=== PATIENT | male | born 1965 | race Caucasian/White ===

== ENCOUNTER 2018-12-10 07:06 | Emergency (ER) | payer OTHER ==
[2018-12-10 07:25] VITALS: BP 158/78
--- NOTE | 2018-12-10 07:28 | UC ---
Skin Complaint HPI - HPI Summary HPI Summary: PATIENT WITH MANY YEARS OF CHRONIC LOWER EXTREMITY SWELLING AND UNCONTROLLED DIABETES COMES IN WITH A 5 DAY HISTORY OF RIGHT LOWER EXTREMITY SKIN ULCER. STARTED INITIALLY A TENSE LUMP WHICH THEN BURST AND DRAINED WHAT SOUNDS LIKE SEROSANGUINEOUS FLUID. PATIENT HAS BEEN CLEANING IT AND BANDAGING IT DAILY. DENIES FEVER. NO PREVIOUS HISTORY OF DIABETIC ULCERS. NO KNOWN HISTORY OF MRSA. - History of Current Complaint Chief Complaint: UCLowerExtremity Time Seen by Provider: 12/10/18 07:27 Stated Complaint: OPEN SORE LOWER LFT LEG Hx Obtained From: Patient Onset/Duration: Gradual Onset, Lasting Days, Still Present Timing: Constant Onset Severity: Moderate Current Severity: Moderate Pain Intensity: 0 Pain Scale Used: 0-10 Numeric Character: Pruritus Aggravating Factor(s): Nothing Alleviating Factor(s): Nothing Associated Signs & Symptoms: Positive: Drainage. Negative: Red Streaks - Allergy/Home Medications Allergies/Adverse Reactions: Allergies Allergy/AdvReac Type Severity Reaction Status Date / Time oxycodone Allergy Shakes Verified 12/10/18 07:33 Penicillins Allergy Rash Verified 12/10/18 07:33 tramadol Allergy Shakes Verified 12/10/18 07:33 Home Medications: Home Medications Aspirin 81 mg CHEW TAB* 81 mg PO DAILY 12/10/18 [History Confirmed 12/10/18] Empaglifozin (NF) [Jardiance] 25 mg PO DAILY 12/10/18 [History Confirmed ] PMH/Surg Hx/FS Hx/Imm Hx Endocrine History: Diabetes Cardiovascular History: Hypertension - Surgical History Surgical History: Yes Surgery Procedure, Year, and Place: 1981 Appendectomy. 1994 Blood Blister removed; right leg - Family History Known Family History: Positive: Hypertension - Social History Alcohol Use: Rare Substance Use Type: None Smoking Status (MU): Never Smoked Tobacco Review of Systems All Other Systems Reviewed And Are Negative: Yes Constitutional: Positive: Negative Skin: Positive: Other - DRAINING ULCER Respiratory: Positive: Negative Cardiovascular: Positive: Negative Gastrointestinal: Positive: Negative Physical Exam Triage Information Reviewed: Yes Appearance: Well-Appearing, No Pain Distress, Well-Nourished Vital Signs: Initial Vital Signs Temp 97.0 F 12/10/18 07:20 Pulse 103 12/10/18 07:20 Resp 18 12/10/18 07:20 BP 158/78 12/10/18 07:20 Pulse Ox 99 12/10/18 07:20 Vital Signs Reviewed: Yes Eyes: Positive: Conjunctiva Clear ENT: Positive: Hearing grossly normal Neck: Positive: Supple Respiratory: Positive: No respiratory distress, No accessory muscle use Cardiovascular: Positive: Pulses Normal Abdomen Description: Positive: Soft Musculoskeletal: Positive: ROM Intact, Edema @ - TENSE BILATERAL LOWER EXTREMITY EDEMA Neurological: Positive: Alert Psychological: Positive: Age Appropriate Behavior Skin: Positive: Other - BILATERAL LOWER EXTREMITY SKIN THICKENING AND HYPERPIGMENTATION. LATERAL RIGHT ANKLE WITH 2CM X 1.5CM ULCERATION WITH CLEAR DRAINAGE. MORE SUPERFICIAL ULCERATIONS ADJACENT X 2 ALSO DRAINING CLEAR FLUID Course/Dx - Course Course Of Treatment: WOUND CLEANED AND DRESSED. PT ADVISED TO CONTACT WOUND CARE AND ALSO TO INQUIRE ABOUT LEG EDEMA TREATMENTS. - Diagnoses Provider Diagnosis: Stasis ulcer of right ankle Discharge - Sign-Out/Discharge Documenting (check all that apply): Patient Departure All imaging exams completed and their final reports reviewed: No Studies - Discharge Plan Condition: Stable Disposition: HOME Prescriptions: Cephalexin CAP* [Keflex 500 CAP*] 500 mg PO QID #28 cap Patient Education Materials: Diabetes and Your Skin (ED) Referrals: Carl Coon MD [Primary Care Provider] - If Needed Additional Instructions: GIVEN YOUR LONG-STANDING LOWER EXTREMITY SWELLING AND UNCONTROLLED DIABETES YOU ARE AT INCREASED RISK FOR DEVELOPING CHRONIC WOUNDS AND SECONDARY BACTERIAL INFECTION. CALL WOUND CARE TODAY TO SCHEDULE A FOLLOW-UP APPOINTMENT FOR LATER THIS WEEK OR NEXT WEEK. YOU SHOULD DISCUSS YOUR OPTIONS FOR RECEIVING TREATMENTS TO HELP WITH YOUR CHRONIC LOWER EXTREMITY SWELLING. RELIEVING THIS WILL HELP REDUCE YOUR RISK OF CHRONIC/RECURRENT WOUNDS. THE NUMBER FOR THE [facility] [place] [facility] IS PROVIDED BELOW. YOU MAY ALSO CALL [facility] TO INQUIRE ABOUT THEIR WOUND CARE SERVICE IF THAT IS MORE CONVENIENT GIVEN WHERE YOU LIVE. TAKE THE ANTIBIOTICS FOR THE FULL COURSE TO HELP PREVENT DEVELOPING INFECTION. GO TO THE CLOSEST ER WITHOUT FAIL IF YOU DEVELOP FEVER, WORSENING SWELLING, PAIN , PURULENT DRAINAGE OR ANY OTHER CONCERNING SYMPTOMS. [facility] [place] [place] [facility] [phone] - Billing Disposition and Condition Condition: STABLE Disposition: Home
== END 2018-12-10 08:04 | disposition home or self-care (01) ==
LOC: UCEAST 07:06
DX: I87.2 Venous insufficiency (chronic) (peripheral) (principal); E11.9 Type 2 diabetes mellitus without complications; I10 Essential (primary) hypertension; Z79.84 Long term (current) use of oral hypoglycemic drugs; Z79.82 Long term (current) use of aspirin; Z88.5 Allergy status to narcotic agent; Z88.0 Allergy status to penicillin
CPT/HCPCS: 99212; G0463

== ENCOUNTER 2019-02-09 09:38 | Emergency (ER) | payer OTHER ==
--- NOTE | 2019-02-09 10:30 | ED ---
ED Suture/Wound Check - HPI Summary HPI Summary: The patient is a 53 y/o M presenting to [facility] with a chief complaint of weeping wounds in the BLE near the calves ankles starting this morning. He reports that the wounds are from hx of DM and viral infections, and he has been going to the wound clinic, but was unable to call them today because of the holiday. He was told measures for caretaking of the wounds after a zinc oxide wrap was placed last week, but he was not sure what to do for weeping of the wounds so he was concerned. He is not currently in any myalgia, but he rates the current pain at 3/10 in severity. He denies fevers. He is currently on Bactrim. - History Of Current Complaint Chief Complaint: EDExtremityLower Stated Complaint: WOUND BLED THROUGH DRESSINGS PER PT Time Seen by Provider: 02/09/19 10:03 Hx Obtained From: Patient Onset/Duration: Gradual Onset, Lasting Hours, Still Present Severity: Mild Pain Intensity: 3 Pain Scale Used: 0-10 Numeric - Allergies/Home Medications Allergies/Adverse Reactions: Allergies Allergy/AdvReac Type Severity Reaction Status Date / Time oxycodone Allergy Shakes Verified 02/09/19 09:45 Penicillins Allergy Rash Verified 02/09/19 09:45 tramadol Allergy Shakes Verified 02/09/19 09:45 Home Medications: Home Medications Cholecalciferol TAB* [Vitamin D TAB*] 1,000 unit PO DAILY 02/09/19 [History Confirmed 02/09/19] Multivitamin [Multivitamins] 1 cap PO DAILY 02/09/19 [History Confirmed 02/09/19 ] Vitamin K2 40 mcg PO DAILY 02/09/19 [History Confirmed 02/09/19] PMH/Surg Hx/FS Hx/Imm Hx Endocrine/Hematology History: Reports: Hx Diabetes Denies: Hx Thyroid Disease Cardiovascular History: Reports: Hx Hypertension Respiratory History: Denies: Hx Asthma, Hx Chronic Obstructive Pulmonary Disease (COPD) GI History: Denies: Hx Ulcer - Surgical History Surgery Procedure, Year, and Place: 1981 Appendectomy. 1994 Blood Blister removed; right leg Infectious Disease History: No Infectious Disease History: Denies: Hx Hepatitis, Hx Human Immunodeficiency Virus (HIV), Traveled Outside the [place] in Last 30 Days - Family History Known Family History: Positive: Hypertension - Social History Alcohol Use: Rare Hx Substance Use: No Substance Use Type: Reports: None Hx Tobacco Use: No Smoking Status (MU): Never Smoked Tobacco Do You Chew or Dip Tobacco: No Have You Chewed or Dipped Tobacco in the LAST YEAR: No Have You Smoked in the Last Year: No Review of Systems Negative: Fever Negative: Myalgia Positive: Other - wounds on lower portion of bilateral extremities at calves and ankles with active weeping All Other Systems Reviewed And Are Negative: Yes Physical Exam - Summary Physical Exam Summary: VITAL SIGNS: Reviewed. GENERAL: Patient is a well-developed and nourished male who is lying comfortable in the stretcher. Patient is not in any acute respiratory distress. HEAD AND FACE: No signs of trauma. No ecchymosis, hematomas or skull depressions. No sinus tenderness. EYES: PERRLA, EOMI x 2, No injected conjunctiva, no nystagmus. EARS: Hearing grossly intact. Ear canals and tympanic membranes are within normal limits. MOUTH: Oropharynx within normal limits. NECK: Supple, trachea is midline, no adenopathy, no JVD, no carotid bruit, no c- spine tenderness, neck with full ROM. CHEST: Symmetric, no tenderness at palpation LUNGS: Clear to auscultation bilaterally. No wheezing or crackles. CVS: Regular rate and rhythm, S1 and S2 present, no murmurs or gallops appreciated. ABDOMEN: Soft, non-tender. No signs of distention. No rebound no guarding, and no masses palpated. Bowel sounds are normal. EXTREMITIES: FROM in all major joints, no edema, no cyanosis or clubbing. NEURO: Alert and oriented x 3. No acute neurological deficits. Speech is normal and follows commands. SKIN: Dry and warm. Three wounds in the left lateral aspect of the left calf, two wounds in the lateral aspect of the right calf, mucopurulent discharge. Triage Information Reviewed: Yes Vital Signs On Initial Exam: Initial Vitals Temp Pulse Resp BP Pulse Ox 97.0 F 111 19 150/117 97 02/09/19 09:43 02/09/19 09:43 02/09/19 09:43 02/09/19 09:43 02/09/19 09:43 Vital Signs Reviewed: Yes Diagnostics - Vital Signs Vital Signs Temp Pulse Resp BP Pulse Ox 02/09/19 09:43 97.0 F 111 19 150/117 97 - Laboratory Lab Statement: Any lab studies that have been ordered have been reviewed, and results considered in the medical decision making process. Re-Evaluation - Re-Evaluation First Eval Re-Evaluation Time: 10:30 Change: Improved Comment: I checked the patient's wounds, and we wrapped them in new bandages. We discussed discharge. Course/Dx - Course Assessment/Plan: The patient is a 53 y/o M presenting to [facility] with a chief complaint of weeping wounds in the BLE near the calves ankles starting this morning. He reports that the wounds are from hx of DM and viral infections, and he has been going to the wound clinic, but was unable to call them today because of the holiday. He was told measures for caretaking of the wounds after a zinc oxide wrap was placed last week, but he was not sure what to do for weeping of the wounds so he was concerned. He is not currently in any myalgia, but he rates the current pain at 3/10 in severity. He denies fevers. He is currently on Bactrim. We unwrapped the bandages, and the patient doesnt have any bleeding. The patient has wounds with some clear discharge. Therefore, we rewrapped the wounds with new bandages, and the patient will follow-up with wound care tomorrow as scheduled. Patient is hemodynamically stable alert and oriented 3. - Clinical Impression Provider Diagnoses: Visit for wound check Discharge - Sign-Out/Discharge Documenting (check all that apply): Patient Departure - Patient will be discharged home. Patient Received Moderate/Deep Sedation with Procedure: No - Discharge Plan Condition: Good Disposition: HOME Patient Education Materials: Chronic Wound Care (ED) Referrals: Carl Coon MD [Primary Care Provider] - Additional Instructions: Follow up at the wound clinic tomorrow as planned. RETURN TO THE EMERGENCY DEPARTMENT FOR ANY NEW OR WORSENING SYMPTOMS. - Billing Disposition and Condition Condition: GOOD Disposition: Home - Attestation Statements Document Initiated by Scribe: Yes Documenting Scribe: Waleska Olivia Provider For Whom Jorgeibe is Documenting (Include Credential): Dr. Jorge Luis Seals MD Scribe Attestation: IWaleska, scribed for Dr. Jorge Luis Seals MD on 02/09/19 at 1149. Scribe Documentation Reviewed: Yes Provider Attestation: The documentation as recorded by the scribe, Waleska Olivia accurately reflects the service I personally performed and the decisions made by me, Dr. Jorge Luis Seals MD Status of Scribe Document: Ready
[2019-02-09 11:08] VITALS: BP 114/81
== END 2019-02-09 11:07 | disposition home or self-care (01) ==
LOC: ED 09:38
DX: Z48.00 Encounter for change or removal of nonsurgical wound dressing (principal); Z88.0 Allergy status to penicillin; E11.9 Type 2 diabetes mellitus without complications; I10 Essential (primary) hypertension
CPT/HCPCS: 99282